=== PATIENT | male | born 1980 | race African-American/Black ===

== ENCOUNTER 2016-11-05 20:12 | Emergency (ER) | payer MEDICAID, OTHER ==
[~2016-11-05] VITALS: Ht 175.3 cm; Wt 86.0 kg
[2016-11-05] MEDS ORDERED: SODIUM CHLORIDE 0.9% 1,000 ML IV ONE ×3 (20:40→23:15)
[2016-11-05] MEDS ORDERED: LORAZEPAM 2MG/ML CPJ IV ONE (21:00)
[2016-11-05 21:16] LABS: BASOPHILS % 0.5 % (0.0-2.0); HEMATOCRIT. 47.5 % (42.0-52.0); HEMOGLOBIN. 15.9 g/dL (14.0-18.0); MEAN CORPUSCULAR HEMOGLOBIN 31.1 pg (28.0-32.0); MEAN CORPUSCULAR VOLUME 93.1 fL (80.0-94.0); MEAN PLATELET VOLUME 8.1 fl (7.4-10.4); MONOCYTES % 8.4 % (2.0-8.0); NEUTROPHILS % 62.1 % (40.0-76.0); PLATELET 260 x1000/uL (130-400); RED CELL DISTRIBUTION WIDTH 13.9 % (11.6-14.6)
[2016-11-05 21:22] LABS: PROTHROMBIN TIME 10.9 sec (9.4-11.6)
[2016-11-05 21:34] LABS: CARBON DIOXIDE 19 mEq/L (21-32); CHLORIDE 101 mEq/L (98-107); ETHANOL BLOOD 178 mg/dL
[2016-11-05 21:39] LABS: CLARITY URINE CLEAR (CLEAR); COLOR URINE YELLOW (YELLOW); GLUCOSE URINE NEGATIVE (NEGATIVE); KETONES URINE NEGATIVE (NEGATIVE); LEUKOCYTE ESTERASE URINE NEGATIVE (NEGATIVE); NITRITE URINE NEGATIVE (NEGATIVE); OCCULT BLOOD URINE 1+ (NEGATIVE); PH URINE 5.5 (4.5-8.0); PROTEIN URINE 1+ (NEGATIVE); SPECIFIC GRAVITY URINE 1.009 (1.005-1.030); UROBILINOGEN URINE 0.2 E.U./dL (0.2-1.0)
[2016-11-05 21:45] LABS: CREATINE KINASE 3608 IU/L (39-308)
[2016-11-05 22:01] LABS: *AMPHETAMINES SCREEN URINE NEGATIVE (NEGATIVE); *BARBITURATES SCREEN URINE NEGATIVE (NEGATIVE); *BENZODIAZEPINES SCREEN URINE NEGATIVE (NEGATIVE); *COCAINE SCREEN URINE NEGATIVE (NEGATIVE); CANNABINOID URINE SCREEN NEGATIVE (NEGATIVE); METHADONE URINE SCREEN NEGATIVE (NEGATIVE); OPIATES URINE SCREEN NEGATIVE (NEGATIVE); PHENCYCLIDINE URINE SCREEN PRESUMTIVE POSITIVE (NEGATIVE)
[2016-11-06] MEDS ORDERED: POTASSIUM CHLORIDE 20MEQ TABLET SR PO ONE (01:15)
[2016-11-06 01:22] LABS: CREATINE KINASE 3193 IU/L (39-308)
[2016-11-06] MEDS ORDERED: LORAZEPAM 2MG/ML CPJ IV ONE (02:30)
[2016-11-06] MEDS ORDERED: ONDANSETRON 4MG ODT PO ONE (04:15)
[2016-11-06 06:24] VITALS: BP 121/68
== END 2016-11-06 08:10 | disposition home or self-care (01) ==
LOC: ER 20:42
DX: T51.0X1A Toxic effect of ethanol, accidental (unintentional), initial encounter (principal); M62.82 Rhabdomyolysis; Y92.480 Sidewalk as the place of occurrence of the external cause
CPT/HCPCS: 36415; 70450; 80053; 80305; 81001; 82550; 82962; 85025; 85610; 93005; 96361; 96374; 96376; 99285; G0482; J2060; J7030; J7040; Q0162; Z7610

== ENCOUNTER 2016-11-06 12:39 | Emergency (ER) | payer OTHER ==
[~2016-11-06] VITALS: Ht 180.3 cm; Wt 82.0 kg
[2016-11-06 12:40] VITALS: BP 138/79
[2016-11-06] MEDS ORDERED: SODIUM CHLORIDE 0.9% 1,000 ML IV ONE (13:18)
== END 2016-11-06 14:49 | disposition left against medical advice (07) ==
LOC: ER 13:13
DX: S00.81XA Abrasion of other part of head, initial encounter (principal); F10.129 Alcohol abuse with intoxication, unspecified; I10 Essential (primary) hypertension; Y04.0XXA Assault by unarmed brawl or fight, initial encounter; Y93.89 Activity, other specified; Y99.8 Other external cause status; Y92.89 Other specified places as the place of occurrence of the external cause; Y90.8 Blood alcohol level of 240 mg/100 ml or more
CPT/HCPCS: 99283; J7030; Z7610

== ENCOUNTER 2024-09-20 13:26 | Emergency (ER) | payer OTHER ==
[~2024-09-20] VITALS: Ht 182.9 cm; Wt 100.0 kg
[2024-09-20 13:37] VITALS: BP 181/113; PULSE 128; RESP 20; TEMP 36.5; O2SAT 99
== END 2024-09-20 14:30 | disposition left against medical advice (07) ==
LOC: ER 13:26
DX: F10.129 Alcohol abuse with intoxication, unspecified (principal); I10 Essential (primary) hypertension; Y90.9 Presence of alcohol in blood, level not specified
CPT/HCPCS: 99283